=== PATIENT | female | born 1960 | race Caucasian/White ===

== ENCOUNTER 2018-07-31 22:51 | Observation (INO) | payer OTHER ==
[2018-07-31] MEDS ORDERED: Sodium Chloride 0.9% 10 ML Syringe FLUSH PRN (23:06)
[2018-07-31] MEDS ORDERED: Sodium Chloride 0.9% 2.5 ML Syringe FLUSH PRN (23:06)
[2018-07-31] MEDS ORDERED: Ketorolac 30 MG/ML SDV IVPUSH ONE (23:06)
[2018-07-31] MEDS ORDERED: Sodium Chloride 0.9% 1,000 ML IV ONE (23:06)
[2018-07-31] MEDS ORDERED: Ondansetron 4 MG/2 ML SDV IVPUSH ONE (23:06)
[2018-07-31] MEDS ORDERED: HYDROmorphone 1 MG/ML Syringe IVPUSH ONE (23:06)
--- NOTE | 2018-07-31 23:09 | EDM.PDOC ---
ED HPI GENERAL MEDICAL PROBLEM - General Chief Complaint: Gastrointestinal Problem Stated Complaint: PT HAS STOMACH PAIN Time Seen by Provider: 07/31/18 23:04 - History of Present Illness INITIAL COMMENTS - FREE TEXT/NARRATIVE: HISTORY AND PHYSICAL: History of present illness: Patient's 58-year-old white female presents with concern acute upper abdominal pain this came on abruptly tonight been associated with nausea and vomiting 4 she denies trauma denies chest pain shortness of breath other concern she's had no abdominal surgery she denies history of gallbladder or pancreatic disease denies history of urolithiasis. Review of systems: As per history of present illness and below otherwise all systems reviewed and negative. Past medical history: As per history of present illness and as reviewed below otherwise noncontributory. Surgical history: As per history of present illness and as reviewed below otherwise noncontributory. Social history: No reported history of drug or alcohol abuse. Family history: As per history of present illness and as reviewed below otherwise noncontributory. Physical exam: HEENT: Atraumatic, normocephalic, pupils reactive, negative for conjunctival pallor or scleral icterus, mucous membranes moist, throat clear, neck supple, nontender, trachea midline. Lungs: Clear to auscultation, breath sounds equal bilaterally, chest nontender. Heart: S1S2, regular, negative for clicks, rubs, or JVD. Abdomen: Soft, nondistended, nonlocalized tenderness across her upper abdomen. Negative for masses or hepatosplenomegaly. Negative for costovertebral tenderness. Pelvis: Stable nontender. Genitourinary: Deferred. Rectal: Deferred. Extremities: Atraumatic, negative for cords or calf pain. Neurovascular unremarkable. Neuro: Awake, alert, oriented. Cranial nerves II through XII unremarkable. Cerebellum unremarkable. Motor and sensory unremarkable throughout. Exam nonfocal. Diagnostics: CBC CMP troponin lipase PT/INR chest x-ray CT abdomen and pelvis Therapeutics: Saline 1 L bolus and Toradol 30 IV Dilaudid 1 mg IV Zofran 4 mg IV Impression: #1 upper abdominal pain Definitive disposition and diagnosis as appropriate pending reevaluation and review of above. - Related Data Allergies Allergy/AdvReac Type Severity Reaction Status Date / Time No Known Allergies Allergy Verified 07/31/18 23:13 Home Meds: Home Meds . [No Known Home Meds] 07/31/18 [History] ED ROS GENERAL - Review of Systems Review Of Systems: ROS reveals no pertinent complaints other than HPI. ED EXAM, GENERAL - Physical Exam Exam: See Below (dictation) Course - Vital Signs Last Recorded V/S: Last Vital Signs Temp 35.5 C 07/31/18 22:51 Pulse 70 07/31/18 22:51 Resp 18 07/31/18 22:51 BP 158/78 H 07/31/18 22:51 Pulse Ox 96 07/31/18 22:51 - Orders/Labs/Meds Orders: Active Orders 24 hr Category Date Time Status EKG Documentation Completion [RC] STAT Care 07/31/18 23:05 Active Pulse Oximetry [RC] ASDIRECTED Care 07/31/18 23:05 Active UA RFX DEQUAN AND CULT IF INDIC [URIN] Stat Lab 07/31/18 23:06 Ordered Sodium Chloride 0.9% [Saline Flush] Med 07/31/18 23:06 Active 10 ml FLUSH ASDIRECTED PRN Sodium Chloride 0.9% [Saline Flush] Med 07/31/18 23:06 Active 2.5 ml FLUSH ASDIRECTED PRN Saline Lock Insert [OM.PC] Stat Oth 07/31/18 23:05 Ordered Medication Orders Sodium Chloride (Saline Flush) 10 ml FLUSH ASDIRECTED PRN PRN Reason: Keep Vein Open Sodium Chloride (Saline Flush) 2.5 ml FLUSH ASDIRECTED PRN PRN Reason: Keep Vein Open Labs: Laboratory Tests 07/31/18 07/31/18 07/31/18 Range/Units 23:00 23:00 23:00 WBC 11.86 H (4.0-11.0) K/uL RBC 4.59 (4.30-5.90) M/uL Hgb 14.6 (12.0-16.0) g/dL Hct 43.6 (36.0-46.0) % MCV 95.0 (80.0-98.0) fL MCH 31.8 (27.0-32.0) pg MCHC 33.5 (31.0-37.0) g/dL RDW Std Deviation 45.7 (28.0-62.0) fl RDW Coeff of Hayes 13 (11.0-15.0) % Plt Count 278 (150-400) K/uL MPV 9.50 (7.40-12.00) fL Neut % (Auto) 86.3 H (48.0-80.0) % Lymph % (Auto) 7.8 L (16.0-40.0) % [place] % (Auto) 5.5 (0.0-15.0) % Eos % (Auto) 0.2 (0.0-7.0) % Baso % (Auto) 0.2 (0.0-1.5) % Neut # (Auto) 10.3 H (1.4-5.7) K/uL Lymph # (Auto) 0.9 (0.6-2.4) K/uL [place] # (Auto) 0.7 (0.0-0.8) K/uL Eos # (Auto) 0.0 (0.0-0.7) K/uL Baso # (Auto) 0.0 (0.0-0.1) K/uL Nucleated RBC % 0.0 /100WBC Nucleated RBCs # 0 K/uL INR 1.02 Sodium 142 (136-145) mmol/L Potassium 3.7 (3.5-5.1) mmol/L Chloride 105 (98-107) mmol/L Carbon Dioxide 25.8 (21.0-32.0) mmol/L BUN 23 H (7.0-18.0) mg/dL Creatinine 0.9 (0.6-1.0) mg/dL Est Cr Clr Drug Dosing TNP Estimated GFR (MDRD) > 60.0 ml/min Glucose 174 H (74-106) mg/dL Calcium 8.7 (8.5-10.1) mg/dL Total Bilirubin 0.7 (0.2-1.0) mg/dL AST 215 H (15-37) IU/L ALT 158 H (14-63) IU/L Alkaline Phosphatase 95 (46-116) U/L Troponin I < 0.050 (0.000-0.056) ng/mL Total Protein 7.4 (6.4-8.2) g/dL Albumin 4.0 (3.4-5.0) g/dL Globulin 3.4 (2.6-4.0) g/dL Albumin/Globulin Ratio 1.2 (0.9-1.6) Lipase 61505 H (73-393) U/L Meds: Medications Generic Name Dose Route Start Last Admin Trade Name Freq PRN Reason Stop Dose Admin Sodium Chloride 10 ml 07/31/18 23:06 Saline Flush FLUSH ASDIRECTED PRN Keep Vein Open Sodium Chloride 2.5 ml 07/31/18 23:06 Saline Flush FLUSH ASDIRECTED PRN Keep Vein Open Discontinued Medications Generic Name Dose Route Start Last Admin Trade Name Freq PRN Reason Stop Dose Admin Hydromorphone HCl 1 mg 07/31/18 23:06 07/31/18 23:16 Dilaudid IVPUSH 07/31/18 23:07 1 mg ONETIME ONE Administration Sodium Chloride 1,000 mls @ 999 mls/hr 07/31/18 23:06 07/31/18 23:16 Normal Saline IV 08/01/18 00:06 999 mls/hr STAT ONE Administration Ketorolac Tromethamine 30 mg 07/31/18 23:06 07/31/18 23:16 Toradol IVPUSH 07/31/18 23:07 30 mg ONETIME ONE Administration Ondansetron HCl 4 mg 07/31/18 23:06 07/31/18 23:16 Zofran IVPUSH 07/31/18 23:07 4 mg ONETIME ONE Administration Departure - Departure Time of Disposition: 00:32 Disposition: Refer to Observation Condition: Good Clinical Impression: Pancreatitis - Discharge Information Forms: ED Department Discharge - My Orders Last 24 Hours: My Active Orders 07/31/18 23:05 EKG Documentation Completion [RC] STAT Pulse Oximetry [RC] ASDIRECTED Saline Lock Insert [OM.PC] Stat 07/31/18 23:06 UA RFX DEQUAN AND CULT IF INDIC [URIN] Stat Sodium Chloride 0.9% [Saline Flush] 10 ml FLUSH ASDIRECTED PRN Sodium Chloride 0.9% [Saline Flush] 2.5 ml FLUSH ASDIRECTED PRN - Assessment/Plan Last 24 Hours: My Active Orders 07/31/18 23:05 EKG Documentation Completion [RC] STAT Pulse Oximetry [RC] ASDIRECTED Saline Lock Insert [OM.PC] Stat 07/31/18 23:06 UA RFX DEQUAN AND CULT IF INDIC [URIN] Stat Sodium Chloride 0.9% [Saline Flush] 10 ml FLUSH ASDIRECTED PRN Sodium Chloride 0.9% [Saline Flush] 2.5 ml FLUSH ASDIRECTED PRN
[2018-07-31 23:31] LABS: CHLORIDE,CL 105 mmol/L (98-107); SODIUM,NA 142 mmol/L (136-145)
--- NOTE | 2018-08-01 00:16 | CR ---
INDICATION: Chest and epigastric pain. TECHNIQUE: Chest radiograph 1 view COMPARISON: None FINDINGS: Cardiovascular and mediastinum: The heart silhouette is normal in size and morphology. The mediastinum is normal in appearance. Lungs and pleural spaces: Both lungs are unremarkable in appearance. No sign of pleural effusion seen. No pneumothorax is identified. Bones and soft tissues: No significant findings. IMPRESSION: 1. No acute cardiopulmonary disease is seen. Dictated by Harrison Benitez MD @ 08/01/2018 12:14:25 AM Dictated by: Harrison Benitez MD @ 08/01/2018 00:14:32 (Electronically Signed)
--- NOTE | 2018-08-01 00:27 | CT ---
INDICATION: Chest and epigastric pain. TECHNIQUE: Noncontrast CT scan of the abdomen and pelvis. FINDINGS: The lung bases show trace dependent atelectasis. 4 mm pulmonary nodule in the lower portion of the left lower lobe best seen image 20 of series 201. No focal abnormalities identified in the visualized portions of the liver, spleen, adrenal glands, and kidneys. No hydronephrosis. No uroliths. Diffuse peripancreatic edema. Single small gallstone in the gallbladder. No bile duct dilation. Calcified uterine fibroids. The GI tract is incompletely distended but shows no gross abnormalities. The stomach and GE junction are not well assessed. Normal appendix. No retroperitoneal, pelvic sidewall, or mesenteric adenopathy. Mild atherosclerotic vascular calcifications. IMPRESSION: 1. Acute pancreatitis. Dictated by Nils Barnhart MD @ 08/01/2018 12:25:47 AM Dictated by: Nils Barnhart MD @ 08/01/2018 00:26:06 (Electronically Signed)
[2018-08-01] MEDS: Morphine 2 MG/ML Syringe IVPUSH PRN ×3 (01:16→05:26)
[2018-08-01] MEDS: Sodium Chloride 0.9% 1,000 ML IV SCH ×3 (01:16→18:04)
[2018-08-01 06:05] LABS: CHLORIDE,CL 106 mmol/L (98-107); SODIUM,NA 141 mmol/L (136-145)
--- NOTE | 2018-08-01 07:41 | PCM.HP ---
H&P History of Present Illness - General Date of Service: 08/01/18 Admit Problem/Dx: Admission Diagnosis/Problem Admission Diagnosis/Problem Pancreatitis Source of Information: Patient, Old Records History Limitations: Reports: No Limitations - History of Present Illness Initial Comments - Free Text/Narative: The patient is an otherwise healthy 58-year-old lady who had presented to the emergency department with acute, severe abdominal pain. The patient reports that this came on suddenly yesterday without provocation. Patient says that she has had no specific aggravating or relieving factors for this. Patient says that the pain starts in the epigastrium and radiates around her ribs to her back. The patient had nausea to accompany this. She also vomited 4 times. The patient does not consume alcohol. She takes no medications chronically. The patient also reports that she has her gallbladder. The patient also has denied any fever or chills. Onset of Symptoms: Reports: Sudden Duration of Symptoms: Reports: Hour(s):, Getting Worse Location: Reports: Abdomen (Epigastrium) Quality: Reports: Stabbing, Throbbing Severity: Severe Improves with: Reports: Medication Worsens with: Reports: None Associated Symptoms: Reports: Nausea/Vomiting epigastric Pain Score (Numeric/FACES): 9 - Related Data Allergies/Adverse Reactions: Allergies Allergy/AdvReac Type Severity Reaction Status Date / Time Penicillins Allergy Rash Verified 08/01/18 02:06 Home Medications: Home Meds . [No Known Home Meds] 07/31/18 [History] Past Medical History - Past Health History Medical/Surgical History: Denies Medical/Surgical History HEENT History: Reports: None Cardiovascular History: Reports: None Respiratory History: Reports: None Gastrointestinal History: Reports: None Genitourinary History: Reports: None Musculoskeletal History: Reports: None Neurological History: Reports: None Psychiatric History: Reports: None Endocrine/Metabolic History: Reports: Obesity/BMI 30+ Hematologic History: Reports: None Immunologic History: Reports: None Oncologic (Cancer) History: Reports: None Dermatologic History: Reports: None - Infectious Disease History Infectious Disease History: Reports: Chicken Pox Social & Family History - Family History Family Medical History: Noncontributory - Tobacco Use Smoking Status *Q: Never Smoker Second Hand Smoke Exposure: No - Caffeine Use Caffeine Use: Reports: Coffee - Alcohol Use Alcohol Use History: Yes Alcohol Use Frequency: Rarely, Not Used in Over 6 Months - Recreational Drug Use Recreational Drug Use: No - Living Situation & Occupation Living situation: Reports: , with Spouse Occupation: Employed H&P Review of Systems - Review of Systems: Review Of Systems: See Below General: Reports: Decreased Appetite HEENT: Reports: No Symptoms Pulmonary: Reports: Shortness of Breath Cardiovascular: Reports: No Symptoms Gastrointestinal: Reports: Abdominal Pain, Nausea, Vomiting. Denies: Constipation, Diarrhea Genitourinary: Reports: No Symptoms Musculoskeletal: Reports: No Symptoms Skin: Reports: No Symptoms Psychiatric: Reports: No Symptoms Neurological: Reports: No Symptoms Hematologic/Lymphatic: Reports: No Symptoms Immunologic: Reports: No Symptoms Exam - Exam Exam: See Below - Vital Signs Vital Signs: Last Vital Signs Temp 36.5 C 08/01/18 04:43 Pulse 68 08/01/18 04:43 Resp 20 08/01/18 04:43 BP 172/83 H 08/01/18 04:43 Pulse Ox 96 08/01/18 04:43 Weight: 84.368 kg - Exam Quality Assessment: No: Supplemental Oxygen General: Alert, Oriented, Cooperative, Moderate Distress HEENT: Conjunctiva Clear, EACs Clear, EOMI, Hearing Intact, Nares Patent, PERRLA. No: Mucosa Moist & [place] (Dry) Neck: Supple, Trachea Midline. No: JVD Lungs: Clear to Auscultation, Normal Respiratory Effort Cardiovascular: Regular Rate, Regular Rhythm GI/Abdominal Exam: Normal Bowel Sounds, Soft, Tender (Epigastrium). No: Guarding, Rigid, Rebound (Female) Exam: Deferred Rectal (Female) Exam: Deferred Back Exam: Normal Inspection, Full Range of Motion, NT Extremities: Normal Inspection, Normal Range of Motion, No Pedal Edema Skin: Warm, Dry, Intact Neurological: Cranial Nerves Intact Neuro Extensive - Mental Status: Alert, Oriented x3 Psychiatric: Alert, Normal Affect, Normal Mood - Patient Data Lab Results Last 24 hrs: Laboratory Results - last 24 hr 07/31/18 07/31/18 07/31/18 Range/Units 23:00 23:00 23:00 WBC 11.86 H (4.0-11.0) K/uL RBC 4.59 (4.30-5.90) M/uL Hgb 14.6 (12.0-16.0) g/dL Hct 43.6 (36.0-46.0) % MCV 95.0 (80.0-98.0) fL MCH 31.8 (27.0-32.0) pg MCHC 33.5 (31.0-37.0) g/dL RDW Std Deviation 45.7 (28.0-62.0) fl RDW Coeff of [place] 13 (11.0-15.0) % Plt Count 278 (150-400) K/uL MPV 9.50 (7.40-12.00) fL Neut % (Auto) 86.3 H (48.0-80.0) % Lymph % (Auto) 7.8 L (16.0-40.0) % [place] % (Auto) 5.5 (0.0-15.0) % Eos % (Auto) 0.2 (0.0-7.0) % Baso % (Auto) 0.2 (0.0-1.5) % Neut # (Auto) 10.3 H (1.4-5.7) K/uL Lymph # (Auto) 0.9 (0.6-2.4) K/uL [place] # (Auto) 0.7 (0.0-0.8) K/uL Eos # (Auto) 0.0 (0.0-0.7) K/uL Baso # (Auto) 0.0 (0.0-0.1) K/uL Nucleated RBC % 0.0 /100WBC Nucleated RBCs # 0 K/uL INR 1.02 Lactate (0.20-2.00) mmol/L Sodium 142 (136-145) mmol/L Potassium 3.7 (3.5-5.1) mmol/L Chloride 105 (98-107) mmol/L Carbon Dioxide 25.8 (21.0-32.0) mmol/L BUN 23 H (7.0-18.0) mg/dL Creatinine 0.9 (0.6-1.0) mg/dL Est Cr Clr Drug Dosing TNP Estimated GFR (MDRD) > 60.0 ml/min Glucose 174 H (74-106) mg/dL Calcium 8.7 (8.5-10.1) mg/dL Magnesium (1.8-2.4) mg/dL Total Bilirubin 0.7 (0.2-1.0) mg/dL AST 215 H (15-37) IU/L ALT 158 H (14-63) IU/L Alkaline Phosphatase 95 (46-116) U/L Lactate Dehydrogenase (81-234) U/L Troponin I < 0.050 (0.000-0.056) ng/mL Total Protein 7.4 (6.4-8.2) g/dL Albumin 4.0 (3.4-5.0) g/dL Globulin 3.4 (2.6-4.0) g/dL Albumin/Globulin Ratio 1.2 (0.9-1.6) Triglycerides (0-200) mg/dL Cholesterol (50-200) mg/dL LDL Cholesterol, Calc (60-180) mg/dL VLDL Cholesterol (5-55) mg/dL HDL Cholesterol (40-60) mg/dL Cholesterol/HDL Ratio (3.3-6.0) Lipase 63015 H (73-393) U/L Urine Color Urine Appearance Urine pH (5.0-8.0) Ur Specific [place] (1.001-1.035) Urine Protein (NEGATIVE) mg/dL Urine Glucose (UA) (NEGATIVE) mg/dL Urine Ketones (NEGATIVE) mg/dL Urine Occult Blood (NEGATIVE) Urine Nitrite (NEGATIVE) Urine Bilirubin (NEGATIVE) Urine Urobilinogen (<2.0) EU/dL Ur Leukocyte Esterase (NEGATIVE) Urine RBC (0-2/HPF) Urine WBC (0-5/HPF) Ur Epithelial Cells (NONE-FEW) Amorphous Sediment (NEGATIVE) Urine Bacteria (NEGATIVE) Urine Mucus (NONE-MOD) 08/01/18 08/01/18 08/01/18 Range/Units 00:30 05:18 05:18 WBC 12.28 H (4.0-11.0) K/uL RBC 4.53 (4.30-5.90) M/uL Hgb 14.3 (12.0-16.0) g/dL Hct 43.3 (36.0-46.0) % MCV 95.6 (80.0-98.0) fL MCH 31.6 (27.0-32.0) pg MCHC 33.0 (31.0-37.0) g/dL RDW Std Deviation 46.9 (28.0-62.0) fl RDW Coeff of [place] 13 (11.0-15.0) % Plt Count 271 (150-400) K/uL MPV 9.70 (7.40-12.00) fL Neut % (Auto) 91.4 H (48.0-80.0) % Lymph % (Auto) 4.0 L (16.0-40.0) % [place] % (Auto) 4.5 (0.0-15.0) % Eos % (Auto) 0.0 (0.0-7.0) % Baso % (Auto) 0.1 (0.0-1.5) % Neut # (Auto) 11.2 H (1.4-5.7) K/uL Lymph # (Auto) 0.5 L (0.6-2.4) K/uL [place] # (Auto) 0.6 (0.0-0.8) K/uL Eos # (Auto) 0.0 (0.0-0.7) K/uL Baso # (Auto) 0.0 (0.0-0.1) K/uL Nucleated RBC % 0.0 /100WBC Nucleated RBCs # 0 K/uL INR Lactate 2.4 H (0.20-2.00) mmol/L Sodium (136-145) mmol/L Potassium (3.5-5.1) mmol/L Chloride (98-107) mmol/L Carbon Dioxide (21.0-32.0) mmol/L BUN (7.0-18.0) mg/dL Creatinine (0.6-1.0) mg/dL Est Cr Clr Drug Dosing Estimated GFR (MDRD) ml/min Glucose (74-106) mg/dL Calcium (8.5-10.1) mg/dL Magnesium (1.8-2.4) mg/dL Total Bilirubin (0.2-1.0) mg/dL AST (15-37) IU/L ALT (14-63) IU/L Alkaline Phosphatase (46-116) U/L Lactate Dehydrogenase (81-234) U/L Troponin I (0.000-0.056) ng/mL Total Protein (6.4-8.2) g/dL Albumin (3.4-5.0) g/dL Globulin (2.6-4.0) g/dL Albumin/Globulin Ratio (0.9-1.6) Triglycerides (0-200) mg/dL Cholesterol (50-200) mg/dL LDL Cholesterol, Calc (60-180) mg/dL VLDL Cholesterol (5-55) mg/dL HDL Cholesterol (40-60) mg/dL Cholesterol/HDL Ratio (3.3-6.0) Lipase (73-393) U/L Urine Color YELLOW Urine Appearance SLT CLOUDY Urine pH 6.5 (5.0-8.0) Ur Specific [place] 1.020 (1.001-1.035) Urine Protein TRACE H (NEGATIVE) mg/dL Urine Glucose (UA) NEGATIVE (NEGATIVE) mg/dL Urine Ketones TRACE H (NEGATIVE) mg/dL Urine Occult Blood NEGATIVE (NEGATIVE) Urine Nitrite NEGATIVE (NEGATIVE) Urine Bilirubin NEGATIVE (NEGATIVE) Urine Urobilinogen 0.2 (<2.0) EU/dL Ur Leukocyte Esterase NEGATIVE (NEGATIVE) Urine RBC 0-2 (0-2/HPF) Urine WBC 0-3 (0-5/HPF) Ur Epithelial Cells FEW (NONE-FEW) Amorphous Sediment MANY (NEGATIVE) Urine Bacteria FEW (NEGATIVE) Urine Mucus LIGHT (NONE-MOD) 08/01/18 08/01/18 Range/Units 05:18 05:18 WBC (4.0-11.0) K/uL RBC (4.30-5.90) M/uL Hgb (12.0-16.0) g/dL Hct (36.0-46.0) % MCV (80.0-98.0) fL MCH (27.0-32.0) pg MCHC (31.0-37.0) g/dL RDW Std Deviation (28.0-62.0) fl RDW Coeff of [place] (11.0-15.0) % Plt Count (150-400) K/uL MPV (7.40-12.00) fL Neut % (Auto) (48.0-80.0) % Lymph % (Auto) (16.0-40.0) % [place] % (Auto) (0.0-15.0) % Eos % (Auto) (0.0-7.0) % Baso % (Auto) (0.0-1.5) % Neut # (Auto) (1.4-5.7) K/uL Lymph # (Auto) (0.6-2.4) K/uL [place] # (Auto) (0.0-0.8) K/uL Eos # (Auto) (0.0-0.7) K/uL Baso # (Auto) (0.0-0.1) K/uL Nucleated RBC % /100WBC Nucleated RBCs # K/uL INR Lactate (0.20-2.00) mmol/L Sodium 141 (136-145) mmol/L Potassium 4.1 (3.5-5.1) mmol/L Chloride 106 (98-107) mmol/L Carbon Dioxide 23.3 (21.0-32.0) mmol/L BUN 18 (7.0-18.0) mg/dL Creatinine 0.8 (0.6-1.0) mg/dL Est Cr Clr Drug Dosing 54.39 Estimated GFR (MDRD) > 60.0 ml/min Glucose 165 H (74-106) mg/dL Calcium 7.5 L (8.5-10.1) mg/dL Magnesium 1.9 (1.8-2.4) mg/dL Total Bilirubin (0.2-1.0) mg/dL AST (15-37) IU/L ALT (14-63) IU/L Alkaline Phosphatase (46-116) U/L Lactate Dehydrogenase 293 H (81-234) U/L Troponin I (0.000-0.056) ng/mL Total Protein (6.4-8.2) g/dL Albumin (3.4-5.0) g/dL Globulin (2.6-4.0) g/dL Albumin/Globulin Ratio (0.9-1.6) Triglycerides 28 (0-200) mg/dL Cholesterol 201 H (50-200) mg/dL LDL Cholesterol, Calc 124 (60-180) mg/dL VLDL Cholesterol 5 (5-55) mg/dL HDL Cholesterol 71 H (40-60) mg/dL Cholesterol/HDL Ratio 2.8 L (3.3-6.0) Lipase 25151 H (73-393) U/L Urine Color Urine Appearance Urine pH (5.0-8.0) Ur Specific [place] (1.001-1.035) Urine Protein (NEGATIVE) mg/dL Urine Glucose (UA) (NEGATIVE) mg/dL Urine Ketones (NEGATIVE) mg/dL Urine Occult Blood (NEGATIVE) Urine Nitrite (NEGATIVE) Urine Bilirubin (NEGATIVE) Urine Urobilinogen (<2.0) EU/dL Ur Leukocyte Esterase (NEGATIVE) Urine RBC (0-2/HPF) Urine WBC (0-5/HPF) Ur Epithelial Cells (NONE-FEW) Amorphous Sediment (NEGATIVE) Urine Bacteria (NEGATIVE) Urine Mucus (NONE-MOD) Result Diagrams: 08/01/18 05:18 08/01/18 05:18 - Problem List (1) Pancreatitis SNOMED Code(s): 75511306 ICD Code: K85.90 - ACUTE PANCREATITIS WITHOUT NECROSIS OR INFECTION, UNSP Status: Acute Priority: High Current Visit: Yes Qualifiers: Chronicity: acute Pancreatitis type: biliary Acute pancreatitis complication: no infection or necrosis Qualified Code(s): K85.10 - Biliary acute pancreatitis without necrosis or infection (2) Cholelithiasis SNOMED Code(s): 445987328 ICD Code: K80.20 - CALCULUS OF GALLBLADDER W/O CHOLECYSTITIS W/O OBSTRUCTION Status: Acute Priority: High Current Visit: Yes Qualifiers: Cholelithiasis location: gallbladder Cholecystitis presence: without cholecystitis Biliary obstruction: with biliary obstruction Qualified Code(s ): K80.21 - Calculus of gallbladder without cholecystitis with obstruction (3) Transaminasemia SNOMED Code(s): 767236038, 688512668 ICD Code: R74.0 - NONSPEC ELEV OF LEVELS OF TRANSAMNS & LACTIC ACID DEHYDRGNSE Status: Acute Priority: High Current Visit: Yes (4) Leukocytosis SNOMED Code(s): 957291128, 194432940 ICD Code: D72.829 - ELEVATED WHITE BLOOD CELL COUNT, UNSPECIFIED Status: Acute Priority: High Current Visit: Yes Qualifiers: Leukocytosis type: bandemia Qualified Code(s): D72.825 - Bandemia (5) Obesity (BMI 30-39.9) SNOMED Code(s): 511643252, 640440912 ICD Code: E66.9 - OBESITY, UNSPECIFIED Status: Chronic Priority: Medium Current Visit: Yes Problem List Initiated/Reviewed/Updated: Yes Orders Last 24hrs: Active Orders 24 hr Category Date Time Status Patient Status [ADT] Stat ADT 08/01/18 00:34 Active Oxygen Therapy [RC] PRN Care 08/01/18 07:16 Active Up ad Mally [RC] ASDIRECTED Care 08/01/18 07:16 Active VTE/DVT Education [RC] PER UNIT ROUTINE Care 08/01/18 07:16 Active Vital Signs [RC] Q4H Care 08/01/18 07:16 Active NPO Now [Nothing per Oral Now Diet] [DIET] Diet 08/01/18 Breakfast Active Abdomen Comp [US] Routine Exams 08/01/18 00:51 Ordered CBC WITH AUTO DIFF [HEME] AM Lab 08/02/18 05:11 Ordered COMPREHENSIVE METABOLIC PN,CMP [CHEM] AM Lab 08/02/18 05:11 Ordered LACTATE DEHYDROGENASE,LDH [CHEM] AM Lab 08/02/18 05:11 Ordered LACTIC ACID,WHOLE BLOOD [BG] Routine Lab 08/01/18 11:18 Ordered LACTIC ACID,WHOLE BLOOD [BG] Routine Lab 08/01/18 17:18 Ordered Enoxaparin [Lovenox] Med 08/01/18 07:30 Active 40 mg SUBCUT Q24H HYDROmorphone [Dilaudid] Med 08/01/18 07:19 Active 1 mg IVPUSH Q2H PRN Ondansetron [Zofran] Med 08/01/18 02:05 Active 4 mg IVPUSH Q6H PRN Sodium Chloride 0.9% [Normal Saline] 1,000 ml Med 08/01/18 01:00 Active IV ASDIRECTED Sodium Chloride 0.9% [Saline Flush] Med 07/31/18 23:06 Active 10 ml FLUSH ASDIRECTED PRN Sodium Chloride 0.9% [Saline Flush] Med 07/31/18 23:06 Active 2.5 ml FLUSH ASDIRECTED PRN Saline Lock Insert [OM.PC] Stat Oth 07/31/18 23:05 Ordered Resuscitation Status Routine Resus Stat 08/01/18 07:16 Ordered Medication Orders Enoxaparin Sodium (Lovenox) 40 mg SUBCUT Q24H JUDI Hydromorphone HCl (Dilaudid) 1 mg IVPUSH Q2H PRN PRN Reason: Abdominal Pain Sodium Chloride (Normal Saline) 1,000 mls @ 125 mls/hr IV ASDIRECTED JUDI Last Admin: 08/01/18 01:16 Dose: 125 mls/hr Ondansetron HCl (Zofran) 4 mg IVPUSH Q6H PRN PRN Reason: Nausea/Vomiting Sodium Chloride (Saline Flush) 10 ml FLUSH ASDIRECTED PRN PRN Reason: Keep Vein Open Sodium Chloride (Saline Flush) 2.5 ml FLUSH ASDIRECTED PRN PRN Reason: Keep Vein Open Assessment/Plan Comment:: The patient is an otherwise healthy 58-year-old lady who has severe pancreatitis. The patient's amylase was greater than 37,000. Her [place] score for now initially is at 1. I'm concerned that the patient does have gallstone pancreatitis and may need an ERCP. I've ordered an ultrasound of her right upper quadrant to assess x-ray transparent gallstones. She does have elevations of her a [employer]NA[employer] and AST. The patient will be kept nothing by mouth. I've change the patient's pain medication to Dilaudid 1 mg IV every 2 hours as needed for severe pain. She is also on IV fluids consisting of normal saline at 125 mL per hour. I've explained to the patient that if it looks like she needs an ERCP the patient will be transported out. For now her vital signs are stable. We'll continue to monitor. Otherwise, reassess her [place] score and 48 hours.
[2018-08-01] MEDS: HYDROmorphone 1 MG/ML Syringe IVPUSH PRN ×7 (07:43→22:29)
[2018-08-01] MEDS: Enoxaparin 40 MG/0.4 ML Syringe SUBCUT SCH (07:45)
--- NOTE | 2018-08-01 09:59 | US ---
INDICATION: Pancreatitis. Cholelithiasis. TECHNIQUE: Limited right upper quadrant ultrasound. COMPARISON: Correlation is made with a CT of the abdomen and pelvis July 31, 2018. FINDINGS: Incomplete visualization of the pancreas. Indistinct fat planes about the pancreatic head compatible with pancreatitis. There are multiple stones in the gallbladder. No gallbladder wall thickening. No pericholecystic fluid. The gallbladder wall measures 1.3 mm and the common bile duct 5.3 mm. Reported "mild positive Gooden`s sign". Please correlate clinically. Mildly echogenic liver could reflect fatty infiltration or other intrinsic hepatic parenchymal process. The visualized right kidney is negative for obstruction. IMPRESSION: 1. Cholelithiasis. Please correlate clinically with regards to any true positive Gooden`s sign. 2. There is evidence for pancreatitis. 3. No biliary ductal dilatation. Dictated by Coleman Garduno MD @ Aug 01 2018 9:54AM Signed by Dr. Coleman Garduno @ Aug 01 2018 9:58AM
[2018-08-01] MEDS: Ondansetron 4 MG/2 ML SDV IVPUSH PRN (12:15)
--- NOTE | 2018-08-01 12:21 | PCM.CONS ---
H&P History of Present Illness - General Date of Service: 08/01/18 Admit Problem/Dx: Admission Diagnosis/Problem Admission Diagnosis/Problem Pancreatitis Source of Information: Patient History Limitations: Reports: No Limitations - History of Present Illness Initial Comments - Free Text/Narative: Patient is a 58 year old female who presented last evening to the ER with upper abdominal pain. This came on suddenly. She has never had pain like this before. She c/o subjective fever and chills. She developed nausea and vomiting. Her vitals were stable on arrival. She had tenderness along the upper abdomen but with deep palpation. Lipase was 37K. WBC was mildly elevated. Her lactate was 2.4. CT scan showed cholelithiasis and acute pancreatitis. A RUQ US showed multiple gallstones in the GB and a CBD of 5mm in size. AST and ALT were mildly elevated. Bilirubin was normal. LDH was mildly elevated. Her repeat labs this morning show her lipase down to 12K and lactate of 2.0. WBC is relatively unchanged. epigastric Pain Score (Numeric/FACES): 9 - Related Data Allergies/Adverse Reactions: Allergies Allergy/AdvReac Type Severity Reaction Status Date / Time Penicillins Allergy Rash Verified 08/01/18 02:06 Home Medications: Home Meds . [No Known Home Meds] 07/31/18 [History] Past Medical History - Past Health History Medical/Surgical History: Denies Medical/Surgical History HEENT History: Reports: None Cardiovascular History: Reports: None Respiratory History: Reports: None Gastrointestinal History: Reports: None Genitourinary History: Reports: None Musculoskeletal History: Reports: None Neurological History: Reports: None Psychiatric History: Reports: None Endocrine/Metabolic History: Reports: Obesity/BMI 30+ Hematologic History: Reports: None Immunologic History: Reports: None Oncologic (Cancer) History: Reports: None Dermatologic History: Reports: None - Infectious Disease History Infectious Disease History: Reports: Chicken Pox Social & Family History - Family History Family Medical History: Noncontributory - Tobacco Use Smoking Status *Q: Never Smoker Second Hand Smoke Exposure: No - Caffeine Use Caffeine Use: Reports: Coffee - Recreational Drug Use Recreational Drug Use: No - Living Situation & Occupation Living situation: Reports: , with Spouse Occupation: Employed H&P Review of Systems - Review of Systems: Review Of Systems: ROS reveals no pertinent complaints other than HPI. Exam - Exam Exam: See Below - Vital Signs Vital Signs: Last Vital Signs Temp 35.9 C 08/01/18 07:30 Pulse 87 08/01/18 07:30 Resp 14 08/01/18 07:30 BP 159/71 H 08/01/18 07:30 Pulse Ox 95 08/01/18 07:30 Weight: 84.368 kg - Exam Quality Assessment: Supplemental Oxygen General: Alert, Oriented, Mild Distress HEENT: Conjunctiva Clear, Mucosa Moist & [place], Posterior Pharynx Clear Neck: Supple, Trachea Midline Lungs: Clear to Auscultation, Normal Respiratory Effort Cardiovascular: Regular Rate, Regular Rhythm GI/Abdominal Exam: Soft, Non-Tender, No Distention, No Mass, Other (mildly uncomfortable with LUQ deep palpation ) Back Exam: Normal Inspection Extremities: Normal Inspection - Patient Data Lab Results Last 24 hrs: Laboratory Results - last 24 hr 07/31/18 07/31/18 07/31/18 Range/Units 23:00 23:00 23:00 WBC 11.86 H (4.0-11.0) K/uL RBC 4.59 (4.30-5.90) M/uL Hgb 14.6 (12.0-16.0) g/dL Hct 43.6 (36.0-46.0) % MCV 95.0 (80.0-98.0) fL MCH 31.8 (27.0-32.0) pg MCHC 33.5 (31.0-37.0) g/dL RDW Std Deviation 45.7 (28.0-62.0) fl RDW Coeff of Hayes 13 (11.0-15.0) % Plt Count 278 (150-400) K/uL MPV 9.50 (7.40-12.00) fL Neut % (Auto) 86.3 H (48.0-80.0) % Lymph % (Auto) 7.8 L (16.0-40.0) % Baldwin % (Auto) 5.5 (0.0-15.0) % Eos % (Auto) 0.2 (0.0-7.0) % Baso % (Auto) 0.2 (0.0-1.5) % Neut # (Auto) 10.3 H (1.4-5.7) K/uL Lymph # (Auto) 0.9 (0.6-2.4) K/uL Baldwin # (Auto) 0.7 (0.0-0.8) K/uL Eos # (Auto) 0.0 (0.0-0.7) K/uL Baso # (Auto) 0.0 (0.0-0.1) K/uL Nucleated RBC % 0.0 /100WBC Nucleated RBCs # 0 K/uL INR 1.02 Lactate (0.20-2.00) mmol/L Sodium 142 (136-145) mmol/L Potassium 3.7 (3.5-5.1) mmol/L Chloride 105 (98-107) mmol/L Carbon Dioxide 25.8 (21.0-32.0) mmol/L BUN 23 H (7.0-18.0) mg/dL Creatinine 0.9 (0.6-1.0) mg/dL Est Cr Clr Drug Dosing TNP Estimated GFR (MDRD) > 60.0 ml/min Glucose 174 H (74-106) mg/dL Calcium 8.7 (8.5-10.1) mg/dL Magnesium (1.8-2.4) mg/dL Total Bilirubin 0.7 (0.2-1.0) mg/dL AST 215 H (15-37) IU/L ALT 158 H (14-63) IU/L Alkaline Phosphatase 95 (46-116) U/L Lactate Dehydrogenase (81-234) U/L Troponin I < 0.050 (0.000-0.056) ng/mL Total Protein 7.4 (6.4-8.2) g/dL Albumin 4.0 (3.4-5.0) g/dL Globulin 3.4 (2.6-4.0) g/dL Albumin/Globulin Ratio 1.2 (0.9-1.6) Triglycerides (0-200) mg/dL Cholesterol (50-200) mg/dL LDL Cholesterol, Calc (60-180) mg/dL VLDL Cholesterol (5-55) mg/dL HDL Cholesterol (40-60) mg/dL Cholesterol/HDL Ratio (3.3-6.0) Lipase 20853 H (73-393) U/L Urine Color Urine Appearance Urine pH (5.0-8.0) Ur Specific Burney (1.001-1.035) Urine Protein (NEGATIVE) mg/dL Urine Glucose (UA) (NEGATIVE) mg/dL Urine Ketones (NEGATIVE) mg/dL Urine Occult Blood (NEGATIVE) Urine Nitrite (NEGATIVE) Urine Bilirubin (NEGATIVE) Urine Urobilinogen (<2.0) EU/dL Ur Leukocyte Esterase (NEGATIVE) Urine RBC (0-2/HPF) Urine WBC (0-5/HPF) Ur Epithelial Cells (NONE-FEW) Amorphous Sediment (NEGATIVE) Urine Bacteria (NEGATIVE) Urine Mucus (NONE-MOD) 08/01/18 08/01/18 08/01/18 Range/Units 00:30 05:18 05:18 WBC 12.28 H (4.0-11.0) K/uL RBC 4.53 (4.30-5.90) M/uL Hgb 14.3 (12.0-16.0) g/dL Hct 43.3 (36.0-46.0) % MCV 95.6 (80.0-98.0) fL MCH 31.6 (27.0-32.0) pg MCHC 33.0 (31.0-37.0) g/dL RDW Std Deviation 46.9 (28.0-62.0) fl RDW Coeff of Hayes 13 (11.0-15.0) % Plt Count 271 (150-400) K/uL MPV 9.70 (7.40-12.00) fL Neut % (Auto) 91.4 H (48.0-80.0) % Lymph % (Auto) 4.0 L (16.0-40.0) % Baldwin % (Auto) 4.5 (0.0-15.0) % Eos % (Auto) 0.0 (0.0-7.0) % Baso % (Auto) 0.1 (0.0-1.5) % Neut # (Auto) 11.2 H (1.4-5.7) K/uL Lymph # (Auto) 0.5 L (0.6-2.4) K/uL Baldwin # (Auto) 0.6 (0.0-0.8) K/uL Eos # (Auto) 0.0 (0.0-0.7) K/uL Baso # (Auto) 0.0 (0.0-0.1) K/uL Nucleated RBC % 0.0 /100WBC Nucleated RBCs # 0 K/uL INR Lactate 2.4 H (0.20-2.00) mmol/L Sodium (136-145) mmol/L Potassium (3.5-5.1) mmol/L Chloride (98-107) mmol/L Carbon Dioxide (21.0-32.0) mmol/L BUN (7.0-18.0) mg/dL Creatinine (0.6-1.0) mg/dL Est Cr Clr Drug Dosing Estimated GFR (MDRD) ml/min Glucose (74-106) mg/dL Calcium (8.5-10.1) mg/dL Magnesium (1.8-2.4) mg/dL Total Bilirubin (0.2-1.0) mg/dL AST (15-37) IU/L ALT (14-63) IU/L Alkaline Phosphatase (46-116) U/L Lactate Dehydrogenase (81-234) U/L Troponin I (0.000-0.056) ng/mL Total Protein (6.4-8.2) g/dL Albumin (3.4-5.0) g/dL Globulin (2.6-4.0) g/dL Albumin/Globulin Ratio (0.9-1.6) Triglycerides (0-200) mg/dL Cholesterol (50-200) mg/dL LDL Cholesterol, Calc (60-180) mg/dL VLDL Cholesterol (5-55) mg/dL HDL Cholesterol (40-60) mg/dL Cholesterol/HDL Ratio (3.3-6.0) Lipase (73-393) U/L Urine Color YELLOW Urine Appearance SLT CLOUDY Urine pH 6.5 (5.0-8.0) Ur Specific Burney 1.020 (1.001-1.035) Urine Protein TRACE H (NEGATIVE) mg/dL Urine Glucose (UA) NEGATIVE (NEGATIVE) mg/dL Urine Ketones TRACE H (NEGATIVE) mg/dL Urine Occult Blood NEGATIVE (NEGATIVE) Urine Nitrite NEGATIVE (NEGATIVE) Urine Bilirubin NEGATIVE (NEGATIVE) Urine Urobilinogen 0.2 (<2.0) EU/dL Ur Leukocyte Esterase NEGATIVE (NEGATIVE) Urine RBC 0-2 (0-2/HPF) Urine WBC 0-3 (0-5/HPF) Ur Epithelial Cells FEW (NONE-FEW) Amorphous Sediment MANY (NEGATIVE) Urine Bacteria FEW (NEGATIVE) Urine Mucus LIGHT (NONE-MOD) 08/01/18 08/01/18 08/01/18 Range/Units 05:18 05:18 11:16 WBC (4.0-11.0) K/uL RBC (4.30-5.90) M/uL Hgb (12.0-16.0) g/dL Hct (36.0-46.0) % MCV (80.0-98.0) fL MCH (27.0-32.0) pg MCHC (31.0-37.0) g/dL RDW Std Deviation (28.0-62.0) fl RDW Coeff of Hayes (11.0-15.0) % Plt Count (150-400) K/uL MPV (7.40-12.00) fL Neut % (Auto) (48.0-80.0) % Lymph % (Auto) (16.0-40.0) % Baldwin % (Auto) (0.0-15.0) % Eos % (Auto) (0.0-7.0) % Baso % (Auto) (0.0-1.5) % Neut # (Auto) (1.4-5.7) K/uL Lymph # (Auto) (0.6-2.4) K/uL Baldwin # (Auto) (0.0-0.8) K/uL Eos # (Auto) (0.0-0.7) K/uL Baso # (Auto) (0.0-0.1) K/uL Nucleated RBC % /100WBC Nucleated RBCs # K/uL INR Lactate 2.0 (0.20-2.00) mmol/L Sodium 141 (136-145) mmol/L Potassium 4.1 (3.5-5.1) mmol/L Chloride 106 (98-107) mmol/L Carbon Dioxide 23.3 (21.0-32.0) mmol/L BUN 18 (7.0-18.0) mg/dL Creatinine 0.8 (0.6-1.0) mg/dL Est Cr Clr Drug Dosing 54.39 Estimated GFR (MDRD) > 60.0 ml/min Glucose 165 H (74-106) mg/dL Calcium 7.5 L (8.5-10.1) mg/dL Magnesium 1.9 (1.8-2.4) mg/dL Total Bilirubin (0.2-1.0) mg/dL AST (15-37) IU/L ALT (14-63) IU/L Alkaline Phosphatase (46-116) U/L Lactate Dehydrogenase 293 H (81-234) U/L Troponin I (0.000-0.056) ng/mL Total Protein (6.4-8.2) g/dL Albumin (3.4-5.0) g/dL Globulin (2.6-4.0) g/dL Albumin/Globulin Ratio (0.9-1.6) Triglycerides 28 (0-200) mg/dL Cholesterol 201 H (50-200) mg/dL LDL Cholesterol, Calc 124 (60-180) mg/dL VLDL Cholesterol 5 (5-55) mg/dL HDL Cholesterol 71 H (40-60) mg/dL Cholesterol/HDL Ratio 2.8 L (3.3-6.0) Lipase 03183 H (73-393) U/L Urine Color Urine Appearance Urine pH (5.0-8.0) Ur Specific Burney (1.001-1.035) Urine Protein (NEGATIVE) mg/dL Urine Glucose (UA) (NEGATIVE) mg/dL Urine Ketones (NEGATIVE) mg/dL Urine Occult Blood (NEGATIVE) Urine Nitrite (NEGATIVE) Urine Bilirubin (NEGATIVE) Urine Urobilinogen (<2.0) EU/dL Ur Leukocyte Esterase (NEGATIVE) Urine RBC (0-2/HPF) Urine WBC (0-5/HPF) Ur Epithelial Cells (NONE-FEW) Amorphous Sediment (NEGATIVE) Urine Bacteria (NEGATIVE) Urine Mucus (NONE-MOD) Result Diagrams: 08/01/18 05:18 08/01/18 05:18 Consult PN Assessment/Plan (1) Cholelithiasis SNOMED Code(s): 118989068 Code(s): K80.20 - CALCULUS OF GALLBLADDER W/O CHOLECYSTITIS W/O OBSTRUCTION Priority: High Current Visit: Yes Qualifiers: Cholelithiasis location: gallbladder Cholecystitis presence: without cholecystitis Biliary obstruction: with biliary obstruction Qualified Code(s ): K80.21 - Calculus of gallbladder without cholecystitis with obstruction (2) Pancreatitis SNOMED Code(s): 45573040 Code(s): K85.90 - ACUTE PANCREATITIS WITHOUT NECROSIS OR INFECTION, UNSP Priority: High Current Visit: Yes Qualifiers: Chronicity: acute Pancreatitis type: biliary Acute pancreatitis complication: no infection or necrosis Qualified Code(s): K85.10 - Biliary acute pancreatitis without necrosis or infection Problem List Initiated/Reviewed/Updated: Yes Plan: The patient likely has acute pancreatitis from transient choledocholithiasis. I discussed the pathophysiology of this with the family and patient. Would recommend aggressive fluid resucitation and close monitoring of intake and output. Pain control per primary team however would recommend [employer] if requiring hourly IV meds. Continue NPO status today. Nausea control with IV meds. No need for prophylactic antibiotics at this point. Recheck CMP and CBC in am. Will discuss possible MRCP in am depending on clinical picture. Patient is not from here and if she needs surgery wants to go back to [place] to have it done there.
[2018-08-01] MEDS ORDERED: Gadobenate Dimeglumine 529 MG/ML 20 ML SDV IVPUSH STA (19:15)
[2018-08-02] MEDS: HYDROmorphone 1 MG/ML Syringe IVPUSH PRN ×7 (00:57→21:39)
[2018-08-02] MEDS: Sodium Chloride 0.9% 1,000 ML IV SCH ×4 (02:55→21:49)
[2018-08-02 06:10] LABS: CHLORIDE,CL 110 mmol/L (98-107); SODIUM,NA 142 mmol/L (136-145)
[2018-08-02] MEDS: Enoxaparin 40 MG/0.4 ML Syringe SUBCUT SCH (06:37)
[2018-08-02] MEDS ORDERED: Sodium Chloride 0.9% 500 ML IV ONE (07:24)
--- NOTE | 2018-08-02 07:29 | PCM.PN ---
- General Info Date of Service: 08/02/18 Admission Dx/Problem (Free Text): Admission Diagnosis/Problem Admission Diagnosis/Problem Pancreatitis Subjective Update: The patient is a 58-year-old lady who had been admitted through the emergency department secondary to severe pancreatitis. Patient had an ultrasound of the right upper quadrant which confirmed for 5 mobile gallstones within the gallbladder. The patient today says that she is doing much better. Her pain is lessened. The patient also has denied any nausea or vomiting. Results of MRCP are currently pending. Functional Status: Reports: Pain Controlled - Review of Systems General: Reports: No Symptoms HEENT: Reports: No Symptoms Pulmonary: Reports: No Symptoms Cardiovascular: Reports: No Symptoms Gastrointestinal: Reports: Abdominal Pain Genitourinary: Reports: No Symptoms Musculoskeletal: Reports: No Symptoms Skin: Reports: No Symptoms Neurological: Reports: No Symptoms Psychiatric: Reports: No Symptoms - Patient Data Vitals - Most Recent: Last Vital Signs Temp 37.6 C 08/02/18 04:00 Pulse 131 H 08/02/18 04:00 Resp 16 08/02/18 04:00 BP 125/81 08/02/18 04:00 Pulse Ox 91 L 08/02/18 04:00 Weight - Most Recent: 84.368 kg I&O - Last 24 Hours: Intake & Output 08/01/18 08/02/18 08/02/18 22:59 06:59 14:59 Intake Total 1467 1429 Output Total 400 325 Balance 1067 1104 Lab Results Last 24 Hours: Laboratory Results - last 24 hr 08/01/18 08/01/18 08/02/18 Range/Units 05:18 11:16 05:15 WBC 13.54 H (4.0-11.0) K/uL RBC 5.08 (4.30-5.90) M/uL Hgb 16.4 H (12.0-16.0) g/dL Hct 48.9 H (36.0-46.0) % MCV 96.3 (80.0-98.0) fL MCH 32.3 H (27.0-32.0) pg MCHC 33.5 (31.0-37.0) g/dL RDW Std Deviation 49.7 (28.0-62.0) fl RDW Coeff of Hayes 14 (11.0-15.0) % Plt Count 282 (150-400) K/uL MPV 10.30 (7.40-12.00) fL Neut % (Auto) 85.4 H (48.0-80.0) % Lymph % (Auto) 6.5 L (16.0-40.0) % Elliott % (Auto) 8.0 (0.0-15.0) % Eos % (Auto) 0.0 (0.0-7.0) % Baso % (Auto) 0.1 (0.0-1.5) % Neut # (Auto) 11.6 H (1.4-5.7) K/uL Lymph # (Auto) 0.9 (0.6-2.4) K/uL Elliott # (Auto) 1.1 H (0.0-0.8) K/uL Eos # (Auto) 0.0 (0.0-0.7) K/uL Baso # (Auto) 0.0 (0.0-0.1) K/uL Nucleated RBC % 0.0 /100WBC Nucleated RBCs # 0 K/uL Lactate 2.0 (0.20-2.00) mmol/L Sodium (136-145) mmol/L Potassium (3.5-5.1) mmol/L Chloride (98-107) mmol/L Carbon Dioxide (21.0-32.0) mmol/L BUN (7.0-18.0) mg/dL Creatinine (0.6-1.0) mg/dL Est Cr Clr Drug Dosing mL/min Estimated GFR (MDRD) ml/min Glucose (74-106) mg/dL Calcium (8.5-10.1) mg/dL Total Bilirubin (0.2-1.0) mg/dL AST (15-37) IU/L ALT (14-63) IU/L Alkaline Phosphatase (46-116) U/L Lactate Dehydrogenase (81-234) U/L Total Protein (6.4-8.2) g/dL Albumin (3.4-5.0) g/dL Globulin (2.6-4.0) g/dL Albumin/Globulin Ratio (0.9-1.6) Lipase 27826 H (73-393) U/L 08/02/18 Range/Units 05:15 WBC (4.0-11.0) K/uL RBC (4.30-5.90) M/uL Hgb (12.0-16.0) g/dL Hct (36.0-46.0) % MCV (80.0-98.0) fL MCH (27.0-32.0) pg MCHC (31.0-37.0) g/dL RDW Std Deviation (28.0-62.0) fl RDW Coeff of Hayes (11.0-15.0) % Plt Count (150-400) K/uL MPV (7.40-12.00) fL Neut % (Auto) (48.0-80.0) % Lymph % (Auto) (16.0-40.0) % Elliott % (Auto) (0.0-15.0) % Eos % (Auto) (0.0-7.0) % Baso % (Auto) (0.0-1.5) % Neut # (Auto) (1.4-5.7) K/uL Lymph # (Auto) (0.6-2.4) K/uL Elliott # (Auto) (0.0-0.8) K/uL Eos # (Auto) (0.0-0.7) K/uL Baso # (Auto) (0.0-0.1) K/uL Nucleated RBC % /100WBC Nucleated RBCs # K/uL Lactate (0.20-2.00) mmol/L Sodium 142 (136-145) mmol/L Potassium 3.9 (3.5-5.1) mmol/L Chloride 110 H (98-107) mmol/L Carbon Dioxide 20.7 L (21.0-32.0) mmol/L BUN 29 H (7.0-18.0) mg/dL Creatinine 0.9 (0.6-1.0) mg/dL Est Cr Clr Drug Dosing 48.34 mL/min Estimated GFR (MDRD) > 60.0 ml/min Glucose 137 H (74-106) mg/dL Calcium 5.9 L (8.5-10.1) mg/dL Total Bilirubin 1.1 H (0.2-1.0) mg/dL AST 92 H (15-37) IU/L ALT 108 H (14-63) IU/L Alkaline Phosphatase 73 (46-116) U/L Lactate Dehydrogenase 569 H (81-234) U/L Total Protein 6.2 L (6.4-8.2) g/dL Albumin 3.0 L (3.4-5.0) g/dL Globulin 3.2 (2.6-4.0) g/dL Albumin/Globulin Ratio 0.9 (0.9-1.6) Lipase 3635 H (73-393) U/L Med Orders - Current: Current Medications Enoxaparin Sodium (Lovenox) 40 mg SUBCUT Q24H JUDI Last Admin: 08/02/18 06:37 Dose: 40 mg Hydromorphone HCl (Dilaudid) 1 mg IVPUSH Q2H PRN PRN Reason: Abdominal Pain Last Admin: 08/02/18 06:34 Dose: 1 mg Sodium Chloride (Normal Saline) 1,000 mls @ 125 mls/hr IV ASDIRECTED JUDI Last Admin: 08/02/18 02:55 Dose: 125 mls/hr Sodium Chloride (Normal Saline) 500 mls @ 999 mls/hr IV .BOLUS ONE Stop: 08/02/18 07:54 Ondansetron HCl (Zofran) 4 mg IVPUSH Q6H PRN PRN Reason: Nausea/Vomiting Last Admin: 08/01/18 12:15 Dose: 4 mg Sodium Chloride (Saline Flush) 10 ml FLUSH ASDIRECTED PRN PRN Reason: Keep Vein Open Sodium Chloride (Saline Flush) 2.5 ml FLUSH ASDIRECTED PRN PRN Reason: Keep Vein Open Discontinued Medications Gadobenate Dimeglumine (Multihance) 20 ml IVPUSH ONETIME STA Stop: 08/01/18 19:16 Last Admin: 08/01/18 19:18 Dose: 16 ml Hydromorphone HCl (Dilaudid) 1 mg IVPUSH ONETIME ONE Stop: 07/31/18 23:07 Last Admin: 07/31/18 23:16 Dose: 1 mg Sodium Chloride (Normal Saline) 1,000 mls @ 999 mls/hr IV STAT ONE Stop: 08/01/18 00:06 Last Admin: 07/31/18 23:16 Dose: 999 mls/hr Ketorolac Tromethamine (Toradol) 30 mg IVPUSH ONETIME ONE Stop: 07/31/18 23:07 Last Admin: 07/31/18 23:16 Dose: 30 mg Morphine Sulfate (Morphine) 2 mg IVPUSH Q2H PRN PRN Reason: Pain (severe 7-10) Last Admin: 08/01/18 05:26 Dose: 2 mg Ondansetron HCl (Zofran) 4 mg IVPUSH ONETIME ONE Stop: 07/31/18 23:07 Last Admin: 07/31/18 23:16 Dose: 4 mg - Exam Quality Assessment: No: Supplemental Oxygen General: Alert, Oriented, Cooperative, No Acute Distress HEENT: Pupils Equal, Pupils Reactive, EOMI, Mucous Membr. Moist/[place] Neck: Supple, Trachea Midline Lungs: Clear to Auscultation, Normal Respiratory Effort Cardiovascular: Regular Rate, Regular Rhythm GI/Abdominal Exam: Normal Bowel Sounds, Soft, No Distention, Tender (Epigastrium , improved). No: Guarding, Rigid, Rebound (Female) Exam: Deferred Back Exam: Normal Inspection, Full Range of Motion Extremities: Normal Inspection, No Pedal Edema Skin: Warm, Dry, Intact Neurological: No New Focal Deficit Psy/Mental Status: Alert, Normal Affect, Normal Mood - Problem List & Annotations (1) Pancreatitis SNOMED Code(s): 68030525 Code(s): K85.90 - ACUTE PANCREATITIS WITHOUT NECROSIS OR INFECTION, UNSP Status: Acute Priority: High Current Visit: Yes Qualifiers: Chronicity: acute Pancreatitis type: biliary Acute pancreatitis complication: no infection or necrosis Qualified Code(s): K85.10 - Biliary acute pancreatitis without necrosis or infection Annotation/Comment:: Overall improved (2) Cholelithiasis SNOMED Code(s): 221818232 Code(s): K80.20 - CALCULUS OF GALLBLADDER W/O CHOLECYSTITIS W/O OBSTRUCTION Status: Acute Priority: High Current Visit: Yes Qualifiers: Cholelithiasis location: gallbladder Cholecystitis presence: without cholecystitis Biliary obstruction: with biliary obstruction Qualified Code(s ): K80.21 - Calculus of gallbladder without cholecystitis with obstruction (3) Transaminasemia SNOMED Code(s): 705631167, 231516215 Code(s): R74.0 - NONSPEC ELEV OF LEVELS OF TRANSAMNS & LACTIC ACID DEHYDRGNSE Status: Acute Priority: High Current Visit: Yes (4) Leukocytosis SNOMED Code(s): 218721956, 824602653 Code(s): D72.829 - ELEVATED WHITE BLOOD CELL COUNT, UNSPECIFIED Status: Acute Priority: High Current Visit: Yes Qualifiers: Leukocytosis type: bandemia Qualified Code(s): D72.825 - Bandemia (5) Obesity (BMI 30-39.9) SNOMED Code(s): 045629080, 527189716 Code(s): E66.9 - OBESITY, UNSPECIFIED Status: Chronic Priority: Medium Current Visit: Yes (6) Tachycardia SNOMED Code(s): 2877203 Code(s): R00.0 - TACHYCARDIA, UNSPECIFIED Status: Acute Priority: High Current Visit: Yes - Problem List Review Problem List Initiated/Reviewed/Updated: Yes - My Orders Last 24 Hours: My Active Orders 08/01/18 07:16 Oxygen Therapy [RC] PRN Up ad Mally [RC] ASDIRECTED VTE/DVT Education [RC] PER UNIT ROUTINE Vital Signs [RC] Q4H Resuscitation Status Routine 08/01/18 07:19 HYDROmorphone [Dilaudid] 1 mg IVPUSH Q2H PRN 08/01/18 07:30 Enoxaparin [Lovenox] 40 mg SUBCUT Q24H 08/01/18 10:28 Consult to Physician [CONS] Routine 08/01/18 10:29 Notify Provider Consults [RC] ASDIRECTED 08/01/18 14:25 Abdomen w wo Cont [MR] Routine 08/01/18 Breakfast NPO Now [Nothing per Oral Now Diet] [DIET] 08/02/18 07:24 Sodium Chloride 0.9% [Normal Saline] 500 ml IV .BOLUS - Plan Plan:: The patient is an otherwise healthy 58-year-old lady who is improving with her pancreatitis. The patient's lipase has dropped to 3700. The patient's pain is lessened although she will be kept on pain control. It's also noted that the patient has been tachycardic and I've ordered an EKG. I've also ordered a normal saline bolus of 1/2 L. The patient does appear to be somewhat dry. The patient is also had an MRCP which is currently pending radiologist over read. The patient had been nothing by mouth and because of her improvement I've advance the patient's diet to clear liquids. The patient's vital signs other than the tachycardia currently stable. The patient also has been encouraged to ambulate. The patient will be continued with fluids as well as it does appear that she has some dehydration which would account for her leukocytosis as well as her tachycardia for now. The patient's BUN has risen to 29 and this will be monitored with repeat blood testing. The patient should be appropriate for discharge possibly in 1-2 days. We'll reassess the patient's Aleksey criteria tomorrow.
[2018-08-02] MEDS: Ondansetron 4 MG/2 ML SDV IVPUSH PRN (09:32)
--- NOTE | 2018-08-02 09:34 | PCM.CONSN ---
- General Info Date of Service: 08/02/18 Admission Dx/Problem (Free Text): Pancreatitis Subjective Update: Afebrile last night. Patient was tachycardic this am. BUN is slightly elevated. Having good UOP. Still having upper back and abdominal pain but feels it is getting better. - Review of Systems General: Reports: Weakness HEENT: Reports: No Symptoms Pulmonary: Reports: No Symptoms Cardiovascular: Reports: No Symptoms Gastrointestinal: Reports: Abdominal Pain Genitourinary: Reports: No Symptoms - Patient Data Vitals - Most Recent: Last Vital Signs Temp 37.7 C 08/02/18 07:52 Pulse 130 H 08/02/18 07:52 Resp 20 08/02/18 07:52 BP 135/73 08/02/18 07:52 Pulse Ox 92 L 08/02/18 07:52 Weight - Most Recent: 84.368 kg I&O - Last 24 Hours: Intake & Output 08/01/18 08/02/18 08/02/18 22:59 06:59 14:59 Intake Total 1467 1429 Output Total 400 325 Balance 1067 1104 Lab Results Last 24 Hours: Laboratory Results - last 24 hr 08/01/18 08/02/18 08/02/18 Range/Units 11:16 05:15 05:15 WBC 13.54 H (4.0-11.0) K/uL RBC 5.08 (4.30-5.90) M/uL Hgb 16.4 H (12.0-16.0) g/dL Hct 48.9 H (36.0-46.0) % MCV 96.3 (80.0-98.0) fL MCH 32.3 H (27.0-32.0) pg MCHC 33.5 (31.0-37.0) g/dL RDW Std Deviation 49.7 (28.0-62.0) fl RDW Coeff of Hayes 14 (11.0-15.0) % Plt Count 282 (150-400) K/uL MPV 10.30 (7.40-12.00) fL Neut % (Auto) 85.4 H (48.0-80.0) % Lymph % (Auto) 6.5 L (16.0-40.0) % Pike % (Auto) 8.0 (0.0-15.0) % Eos % (Auto) 0.0 (0.0-7.0) % Baso % (Auto) 0.1 (0.0-1.5) % Neut # (Auto) 11.6 H (1.4-5.7) K/uL Lymph # (Auto) 0.9 (0.6-2.4) K/uL Pike # (Auto) 1.1 H (0.0-0.8) K/uL Eos # (Auto) 0.0 (0.0-0.7) K/uL Baso # (Auto) 0.0 (0.0-0.1) K/uL Nucleated RBC % 0.0 /100WBC Nucleated RBCs # 0 K/uL Lactate 2.0 (0.20-2.00) mmol/L Sodium 142 (136-145) mmol/L Potassium 3.9 (3.5-5.1) mmol/L Chloride 110 H (98-107) mmol/L Carbon Dioxide 20.7 L (21.0-32.0) mmol/L BUN 29 H (7.0-18.0) mg/dL Creatinine 0.9 (0.6-1.0) mg/dL Est Cr Clr Drug Dosing 48.34 mL/min Estimated GFR (MDRD) > 60.0 ml/min Glucose 137 H (74-106) mg/dL Calcium 5.9 L (8.5-10.1) mg/dL Total Bilirubin 1.1 H (0.2-1.0) mg/dL AST 92 H (15-37) IU/L ALT 108 H (14-63) IU/L Alkaline Phosphatase 73 (46-116) U/L Lactate Dehydrogenase 569 H (81-234) U/L Total Protein 6.2 L (6.4-8.2) g/dL Albumin 3.0 L (3.4-5.0) g/dL Globulin 3.2 (2.6-4.0) g/dL Albumin/Globulin Ratio 0.9 (0.9-1.6) Lipase 3635 H (73-393) U/L Med Orders - Current: Current Medications Enoxaparin Sodium (Lovenox) 40 mg SUBCUT Q24H JUDI Last Admin: 08/02/18 06:37 Dose: 40 mg Hydromorphone HCl (Dilaudid) 1 mg IVPUSH Q2H PRN PRN Reason: Abdominal Pain Last Admin: 08/02/18 08:35 Dose: 1 mg Sodium Chloride (Normal Saline) 1,000 mls @ 125 mls/hr IV ASDIRECTED JUDI Last Admin: 08/02/18 08:16 Dose: 125 mls/hr Ondansetron HCl (Zofran) 4 mg IVPUSH Q6H PRN PRN Reason: Nausea/Vomiting Last Admin: 08/01/18 12:15 Dose: 4 mg Sodium Chloride (Saline Flush) 10 ml FLUSH ASDIRECTED PRN PRN Reason: Keep Vein Open Sodium Chloride (Saline Flush) 2.5 ml FLUSH ASDIRECTED PRN PRN Reason: Keep Vein Open Discontinued Medications Gadobenate Dimeglumine (Multihance) 20 ml IVPUSH ONETIME STA Stop: 08/01/18 19:16 Last Admin: 08/01/18 19:18 Dose: 16 ml Hydromorphone HCl (Dilaudid) 1 mg IVPUSH ONETIME ONE Stop: 07/31/18 23:07 Last Admin: 07/31/18 23:16 Dose: 1 mg Sodium Chloride (Normal Saline) 1,000 mls @ 999 mls/hr IV STAT ONE Stop: 08/01/18 00:06 Last Admin: 07/31/18 23:16 Dose: 999 mls/hr Sodium Chloride (Normal Saline) 500 mls @ 999 mls/hr IV .BOLUS ONE Stop: 08/02/18 07:54 Last Admin: 08/02/18 07:44 Dose: 999 mls/hr Ketorolac Tromethamine (Toradol) 30 mg IVPUSH ONETIME ONE Stop: 07/31/18 23:07 Last Admin: 07/31/18 23:16 Dose: 30 mg Morphine Sulfate (Morphine) 2 mg IVPUSH Q2H PRN PRN Reason: Pain (severe 7-10) Last Admin: 08/01/18 05:26 Dose: 2 mg Ondansetron HCl (Zofran) 4 mg IVPUSH ONETIME ONE Stop: 07/31/18 23:07 Last Admin: 07/31/18 23:16 Dose: 4 mg - Exam General: Alert, Oriented, Cooperative, No Acute Distress Lungs: Normal Respiratory Effort Cardiovascular: Tachycardia GI/Abdominal Exam: Soft, Non-Tender, No Distention, No Mass Back Exam: Normal Inspection, Full Range of Motion Extremities: Normal Inspection Consult PN Assessment/Plan (1) Cholelithiasis SNOMED Code(s): 319217231 Code(s): K80.20 - CALCULUS OF GALLBLADDER W/O CHOLECYSTITIS W/O OBSTRUCTION Priority: High Current Visit: Yes Qualifiers: Cholelithiasis location: gallbladder Cholecystitis presence: without cholecystitis Biliary obstruction: with biliary obstruction Qualified Code(s ): K80.21 - Calculus of gallbladder without cholecystitis with obstruction (2) Pancreatitis SNOMED Code(s): 82497051 Code(s): K85.90 - ACUTE PANCREATITIS WITHOUT NECROSIS OR INFECTION, UNSP Priority: High Current Visit: Yes Comment: Overall improved Qualifiers: Chronicity: acute Pancreatitis type: biliary Acute pancreatitis complication: no infection or necrosis Qualified Code(s): K85.10 - Biliary acute pancreatitis without necrosis or infection Problem List Initiated/Reviewed/Updated: Yes Plan: MRI showed no evidence of cholelithiasis. Her LFTs are improving. BUN elevated and tachcyardic. Getting fluid bolus this am. Her WBC is increasing slowly. No other signs of infection. Continue supportive measures with fluid replacement. Ok to advance diet to clears.
[2018-08-02] MEDS: Levofloxacin/Dextrose 5%-Water 500 MG in Premix Bag 1 BAG IV SCH (10:26)
--- NOTE | 2018-08-02 14:32 | MR ---
EXAM DATE: 08/01/18 PATIENT'S AGE: 58 Patient: JESSICA VELAZQUEZ Facility: [facility] Site . Site : 1960 Study: MRI-Abdomen [id number] 7:46:28 PM Ordering Physician: Malia Cee Final Report: INDICATION: Pancreatitis. TECHNIQUE: Abdominal MRI with T1 in- and out of phase, T2, diffusion weighted, and progressively delayed post-contrast images. Intravenous gadolinium administered. Heavily T2 weighted 2D and 3D MRCP images also performed. Comparison : Abdominal ultrasound dated [address] scan of the abdomen and pelvis dated 31 July 2018. FINDINGS: Mild diffuse fatty infiltration of the liver. No focal abnormalities identified in the visualized portions of the liver, spleen, adrenal glands, and kidneys. No hydronephrosis. Diffuse peripancreatic edema which extends throughout the upper abdomen and retroperitoneum. Normal enhancement of the pancreas. No intra or extrahepatic bile duct dilation with the common bile duct measuring 5 mm. No filling defects in the biliary system. Normal size of the main pancreatic duct. A few small gallstones in the gallbladder. Mild gallbladder wall thickening. IMPRESSION: 1. Acute pancreatitis. No evidence of pancreatic necrosis. 2. Peripancreatic edema throughout the upper abdomen and retroperitoneum is worsened. 3. No bile duct dilation. No choledocholithiasis. Normal size of the main pancreatic duct. 4. Cholelithiasis. Mild gallbladder wall thickening which could be due to the peripancreatic edema or represent a cholecystitis. 5. Mild diffuse fatty infiltration of the liver. Dictated by Nils Barnhart MD @ 08/01/2018 8:03:01 PM Dictated by: Nils Barnhart MD @ 08/01/2018 20:03:12 Signed by: Nils Barnhart MD @08/01/2018 8:03:12 PM (Electronic Signature) Report Signed by Proxy. [facility]
[2018-08-02] MEDS ORDERED: Sodium Chloride 0.9% 1,000 ML IV ONE (14:56)
[2018-08-03] MEDS: Sodium Chloride 0.9% 1,000 ML IV SCH (02:48)
[2018-08-03] MEDS: HYDROmorphone 1 MG/ML Syringe IVPUSH PRN ×2 (03:00→10:16)
[2018-08-03] MEDS ORDERED: Albuterol/Ipratropium 3.0-0.5 MG/3 ML Neb Soln NEB PRN (03:29)
--- NOTE | 2018-08-03 07:28 | CR ---
INDICATION: Dyspnea. TECHNIQUE: PA and lateral chest. COMPARISON: 07/31/2018. FINDINGS: Cardiac, mediastinal and hilar contours are within normal limits. Pulmonary vasculature is unremarkable. Low lung volumes are noted. There are trace bilateral pleural effusions with bibasilar atelectasis. No pneumothorax. IMPRESSION: Trace bilateral pleural effusions with bibasilar atelectasis. Dictated by Nasim Guido MD @ 08/03/2018 7:26:17 AM Dictated by: Nasim Guido MD @ 08/03/2018 07:26:27 (Electronically Signed)
[2018-08-03] MEDS: Enoxaparin 40 MG/0.4 ML Syringe SUBCUT SCH (07:35)
[2018-08-03] MEDS ORDERED: Calcium Gluconate 10% 1 GM/10 ML SDV IV ONE (09:35)
[2018-08-03] MEDS ORDERED: metroNIDAZOLE/Normal Saline 500 MG in Premix Bag 1 BAG IV SCH (09:36)
[2018-08-03] MEDS ORDERED: WATER IV ONE ×2 (10:15)
[2018-08-03] MEDS ORDERED: DEXTROSE 5% IV ONE ×2 (10:15)
[2018-08-03] MEDS ORDERED: CALCIUM GLUCONATE IV ONE ×2 (10:15)
--- NOTE | 2018-08-03 10:29 | PCM.DCSUM1 ---
Discharge Summary - Hospital Course Brief History: This 58 year old female with no significant pmh presented to the ER 08/01 evening with upper abdominal pain. This came on suddenly. She has never had pain like this before. She c/o subjective fever and chills. She developed nausea and vomiting. Her vitals were stable on arrival. She had tenderness along the upper abdomen but with deep palpation. Lipase was 37K. WBC was mildly elevated. Her lactate was 2.4. CT scan showed cholelithiasis and acute pancreatitis. A RUQ US showed multiple gallstones in the GB and a CBD of 5mm in size. AST and ALT were mildly elevated. Bilirubin was normal. LDH was mildly elevated. Her repeat labs this morning show her lipase down to 12K and lactate of 2.0. WBC is relatively unchanged. Diagnosis: Stroke: No - Discharge Data Discharge Date: 08/03/18 Discharge Disposition: DC/Tfer to [facility] Condition: Fair - Patient Summary/Data Consults: Consultations 08/01/18 10:28 Consult to Physician [CONS] Routine - Patient Instructions Diet: NPO - Discharge Plan *PRESCRIPTION DRUG MONITORING PROGRAM REVIEWED*: Not Applicable *COPY OF PRESCRIPTION DRUG MONITORING REPORT IN PATIENT KAT: Not Applicable Home Medications: Home Meds Albuterol/Ipratropium [DuoNeb 3.0-0.5 MG/3 ML] 3 ml NEB Q6HRRT PRN neb [Rx] HYDROmorphone [Dilaudid] 1 mg IVPUSH Q2H PRN syringe 08/03/18 [Rx] Levofloxacin/Dextrose 5%-Water [Levaquin in D5W 500 MG/100 ML] 500 mg IV Q24H bag 08/03/18 [Rx] Ondansetron [Zofran] 4 mg IVPUSH Q6H PRN vial 08/03/18 [Rx] Sodium Chloride 0.9% [Normal Saline] 200 ml IV ASDIRECTED bag 08/03/18 [Rx] metroNIDAZOLE/Normal Saline [Flagyl 500 MG in NS 100 ML] 500 mg IV QID bag [Rx] Oxygen Therapy Mode: Nasal Cannula Oxygen Flow Rate (L/min): 2 Referrals: Danette Lawler MD [Ordering Only Provider] - - Discharge Summary/Plan Comment DC Time >30 min.: No Discharge Summary/Plan Comment: Discharge Diagnoses: gallstone pancreatitis Radha was admitted and initially fluid resuscitated with NS. HR continued to be tachycardic and she continued to have tachypnea. MRCP of abdomen was ordered upon recommendation of our General surgeon, Dr Jaimes. MRCP revealed acute pancreatitis without necrosis, peripancreatitc edema throughout upper abdomen and retroperitoneum that worsened from CT. No bile duct dilation, no choledocholithiasis, possible cholecystitis vs edema. Levaquin was started at this time as well as increasing fluids to 200 mls/hr and 1 l bolus. She has continued to have abdominal pain and distension. Today BUN and CR continue to elevate along with increasing leukocytosis and decreasing Ca. Family and patient are requesting transfer at this time due to them being from [place] as well as expected length of stay greater than 96 hours, which being a critical access hospital are limited by. Dr Jaimes our general surgeon agrees with this and also visited with patient and family this morning. I initially got accepting provider Dr Victoria at [facility] in [place], but family requested to go to [place] and they would like to be flown and not take the ambulance for four hours. They were told flights are very expensive and they said "they aren't worried about the barber". They want her to be taken care of quickly. I then spoke with Dr Shlomo Lomax, Hospitalist at [facility] in [place], who kindly accepted patient at this time. Charge nurse notified and will be contacting flight team. Prior to discharge she was also given Calcium 2 gm IV as well as Flagyl 500 mg IV. Fluids to be continued at 200 mls/hr during flight along with zofran and analgesia PRN. - General Info Date of Service: 08/03/18 Admission Dx/Problem (Free Text: Gallstone pancreatitis Subjective Update: Reports feeling bloated and continuing to have nausea along with epigastric pain. Reports breathing is fast and having some wheezing. she was updated on chest xray this morning. No fevers or chest pain. Just overall not feeling well. Expresses fear of what is going on and what will happend. also voices this. Dr Ramirze and myself explained the process of treatment for pancreatitis and the need for continuous IVFs at a high rate to hydrate. Complains of dry mouth. Functional Status: Reports: Ambulating, Urinating. Denies: Pain Controlled - Review of Systems General: Reports: Fatigue, Malaise. Denies: Fever HEENT: Reports: No Symptoms. Denies: Headaches, Sore Throat Pulmonary: Reports: Shortness of Breath, Wheezing. Denies: Cough Cardiovascular: Reports: No Symptoms. Denies: Chest Pain, Palpitations Gastrointestinal: Reports: Abdominal Pain, Decreased Appetite, Nausea, Vomiting Genitourinary: Reports: No Symptoms. Denies: Dysuria, Frequency Musculoskeletal: Reports: No Symptoms Skin: Reports: No Symptoms Neurological: Reports: No Symptoms Psychiatric: Reports: No Symptoms - Patient Data Vitals - Most Recent: Last Vital Signs Temp 96.7 F 08/03/18 03:30 Pulse 124 H 08/03/18 03:30 Resp 22 H 08/03/18 03:30 BP 148/92 H 08/03/18 03:30 Pulse Ox 91 L 08/03/18 04:56 Weight - Most Recent: 93.015 kg I&O - Last 24 hours: Intake & Output 08/02/18 08/03/18 08/03/18 22:59 06:59 14:59 Intake Total 4050 3279 Output Total 400 400 Balance 3650 2879 Lab Results - Last 24 hrs: Laboratory Results - last 24 hr 08/03/18 08/03/18 Range/Units 05:40 05:40 WBC 14.22 H (4.0-11.0) K/uL RBC 4.68 (4.30-5.90) M/uL Hgb 14.7 (12.0-16.0) g/dL Hct 45.8 (36.0-46.0) % MCV 97.9 (80.0-98.0) fL MCH 31.4 (27.0-32.0) pg MCHC 32.1 (31.0-37.0) g/dL RDW Std Deviation 51.4 (28.0-62.0) fl RDW Coeff of Hayes 14 (11.0-15.0) % Plt Count 243 (150-400) K/uL MPV 9.70 (7.40-12.00) fL Add Manual Diff YES Neutrophils % (Manual) 35 L (48.0-80.0) % Band Neutrophils % 33 % Lymphocytes % (Manual) 18 (16.0-40.0) % Monocytes % (Manual) 9 (0.0-15.0) % Eosinophils % (Manual) 1 (0.0-7.0) % Metamyelocytes % 4 % Nucleated RBC % 0.0 /100WBC Absolute Seg Neuts 5.0 (1.4-5.7) Band Neutrophils # 4.7 Lymphocytes # (Manual) 2.6 H (0.6-2.4) Monocytes # (Manual) 1.3 H (0.0-0.8) Eosinophils # (Manual) 0.1 (0.0-0.7) Absolute Metamyelocyte 0.6 Nucleated RBCs # 0 K/uL Sodium 133 L (136-145) mmol/L Potassium 4.0 (3.5-5.1) mmol/L Chloride 103 (98-107) mmol/L Carbon Dioxide 18.0 L (21.0-32.0) mmol/L BUN 33 H (7.0-18.0) mg/dL Creatinine 1.2 H (0.6-1.0) mg/dL Est Cr Clr Drug Dosing 36.26 mL/min Estimated GFR (MDRD) 46.0 ml/min Glucose 102 (74-106) mg/dL Calcium 5.1 L (8.5-10.1) mg/dL Total Bilirubin 1.3 H (0.2-1.0) mg/dL AST 97 H (15-37) IU/L ALT 68 H (14-63) IU/L Alkaline Phosphatase 68 (46-116) U/L Total Protein 5.9 L (6.4-8.2) g/dL Albumin 2.7 L (3.4-5.0) g/dL Globulin 3.2 (2.6-4.0) g/dL Albumin/Globulin Ratio 0.8 L (0.9-1.6) Lipase 1622 H (73-393) U/L Med Orders - Current: Current Medications Albuterol/Ipratropium (Duoneb 3.0-0.5 Mg/3 Ml) 3 ml NEB Q6HRRT PRN PRN Reason: Shortness of Breath Last Admin: 08/03/18 04:53 Dose: 3 ml Enoxaparin Sodium (Lovenox) 40 mg SUBCUT Q24H JUDI Last Admin: 08/03/18 07:35 Dose: 40 mg Hydromorphone HCl (Dilaudid) 1 mg IVPUSH Q2H PRN PRN Reason: Abdominal Pain Last Admin: 08/03/18 10:16 Dose: 1 mg Levofloxacin/Dextrose 500 mg/ (Premix) 100 mls @ 100 mls/hr IV Q24H REPLACED BY [facility] Last Admin: 08/02/18 10:26 Dose: 100 mls/hr Sodium Chloride (Normal Saline) 1,000 mls @ 200 mls/hr IV ASDIRECTED REPLACED BY [facility] Last Admin: 08/03/18 02:48 Dose: 200 mls/hr Metronidazole 500 mg/ Premix 100 mls @ 100 mls/hr IV QID REPLACED BY [facility] Last Admin: 08/03/18 10:11 Dose: 100 mls/hr Calcium Gluconate 2 gm/ (Dextrose/Water) 70 mls @ 140 mls/hr IV ONETIME ONE Stop: 08/03/18 10:44 Ondansetron HCl (Zofran) 4 mg IVPUSH Q6H PRN PRN Reason: Nausea/Vomiting Last Admin: 08/02/18 09:32 Dose: 4 mg Sodium Chloride (Saline Flush) 10 ml FLUSH ASDIRECTED PRN PRN Reason: Keep Vein Open Sodium Chloride (Saline Flush) 2.5 ml FLUSH ASDIRECTED PRN PRN Reason: Keep Vein Open Discontinued Medications Gadobenate Dimeglumine (Multihance) 20 ml IVPUSH ONETIME STA Stop: 08/01/18 19:16 Last Admin: 08/01/18 19:18 Dose: 16 ml Hydromorphone HCl (Dilaudid) 1 mg IVPUSH ONETIME ONE Stop: 07/31/18 23:07 Last Admin: 07/31/18 23:16 Dose: 1 mg Sodium Chloride (Normal Saline) 1,000 mls @ 999 mls/hr IV STAT ONE Stop: 08/01/18 00:06 Last Admin: 07/31/18 23:16 Dose: 999 mls/hr Sodium Chloride (Normal Saline) 1,000 mls @ 125 mls/hr IV ASDIRECTED REPLACED BY [facility] Last Admin: 08/02/18 08:16 Dose: 125 mls/hr Sodium Chloride (Normal Saline) 500 mls @ 999 mls/hr IV .BOLUS ONE Stop: 08/02/18 07:54 Last Admin: 08/02/18 07:44 Dose: 999 mls/hr Sodium Chloride (Normal Saline) 1,000 mls @ 999 mls/hr IV .Bolus ONE Stop: 08/02/18 15:56 Last Admin: 08/02/18 15:40 Dose: 999 mls/hr Ketorolac Tromethamine (Toradol) 30 mg IVPUSH ONETIME ONE Stop: 07/31/18 23:07 Last Admin: 07/31/18 23:16 Dose: 30 mg Morphine Sulfate (Morphine) 2 mg IVPUSH Q2H PRN PRN Reason: Pain (severe 7-10) Last Admin: 08/01/18 05:26 Dose: 2 mg Ondansetron HCl (Zofran) 4 mg IVPUSH ONETIME ONE Stop: 07/31/18 23:07 Last Admin: 07/31/18 23:16 Dose: 4 mg - Exam Quality Assessment: Reports: DVT Prophylaxis General: Reports: Alert, Oriented, Cooperative, Other (flushed appearance. resting with eyes closed during most of conversation. Does intermittently speak. does most of talking and interacting.) Lungs: Reports: Wheezing (bilaterally). Denies: Normal Respiratory Effort ( tachypnea noted, ) Cardiovascular: Reports: Regular Rhythm, Tachycardia. Denies: Murmurs GI/Abdominal Exam: Soft, Distended, Tender (epigastric region). No: Normal Bowel Sounds (hypoactive), Guarding, Rigid, Rebound Extremities: Normal Inspection, Normal Range of Motion, Pedal Edema (mild +1 non pitting edema) Skin: Reports: Warm, Dry Neurological: Reports: No New Focal Deficit Psy/Mental Status: Reports: Alert, Normal Affect, Normal Mood
[2018-08-03] MEDS: Levofloxacin/Dextrose 5%-Water 500 MG in Premix Bag 1 BAG IV SCH (12:02)
== END 2018-08-03 11:10 ==
LOC: MW.ED 22:51 → MW.MS 08-01 00:34
PROVIDERS: ADMIT Internal Medicine; ATTEND Internal Medicine
DX: K85.90 Acute pancreatitis without necrosis or infection, unspecified (principal); K80.21 Calculus of gallbladder without cholecystitis with obstruction; D72.825 Bandemia; R74.0 Nonspecific elevation of levels of transaminase and lactic acid dehydrogenase [LDH]; E66.9 Obesity, unspecified; Z68.39 Body mass index [BMI] 39.0-39.9, adult; Z88.0 Allergy status to penicillin
CPT/HCPCS: 36415; 71045; 71045-26; 71046; 71046-26; 74176; 74176-26; 74183; 74183-26; 76705; 76705-26; 80048; 80053; 80061; 81001; 83605; 83615; 83690; 83735; 84484; 85025; 85610; 93005; 96361; 96372; 96374; 96375; 96376; 99283; 99285-25; A9577; G0378; J0610; J1170; J1650; J1885; J1956; J2270; J2405; J3490; J7040; J7060; J7620-GY